=== PATIENT | male | born 1990 | race Caucasian/White ===

== ENCOUNTER 2024-12-16 04:15 | Inpatient (IN) | payer MEDICARE, OTHER, SELFPAY ==
[2024-12-16] VITALS (8 sets, daily range): BP systolic 100–128; BP diastolic 63–78; PULSE 92–117; TEMP 36.8–38.1; O2SAT 96–99
--- NOTE | 2024-12-16 04:49 | ED_ITS ---
Documented by User: Jak Aguirre MD 12/20/24 23:16 HPI HPI - General Adult General Chief complaint: Extremity Problem, Nontraumatic Stated complaint: CATHETER ISSUE Time Seen by Provider: 12/16/24 04:37 Source: patient Mode of arrival: walk-in Limitations: no limitations History of Present Illness HPI narrative: patient ill for the past week. Has a tunnel right inguinal central line that was placed 4 years ago [facility] after he was in an accident and required hemodialysis . States it has not been used for years. Now presents stating he had fever at home. he feels week and now has pain at the central line entry site. No dyspnea. Doesn't feel well he also had compartment syndrome RUE and has resultant deformity post treatment Related Data Home Medications ?Medication ?Instructions ?Recorded ?Confirmed buprenorphine 8 mg-naloxone 2 mg 1.5 film sublingual B ID 12/17/24 12/17/24 sublingual film gabapentin 600 mg tablet 600 mg PO TID PRN anxiety 12/17/24 Allergies Allergy/AdvReac Type Severity Reaction Status Date / Time No Known Drug Allergies Allergy Verified 12/16/24 04:26 Opioid HPI Opioid Management Most Recent Opioid Data: 2 Last Pain Scale 3 Today, 09:53 Last Pain Assessment 12/17/24, 02:00 Last MAR Pain Assessment 12/16/24, 22:00 Last ORT Total Score 2 12/17/24, 01:13 Last ORT Risk Category Low Risk 12/17/24, 01:13 Ur Phencyclidine Scrn, (NEGATIVE) Negative , 10:30 Review of Systems 2 ROS0 Status of ROS 10 or more systems reviewed and unremark able except as noted in history and below PFSH PFS Medical History (Updated 12/17/24 @ 10:12 by David López MD) Compartment syndrome of right upper extremity ?T79.A11A - Traumatic compartment syndrome of right upper extremity, initial encounter (ICD-10) Surgical History (Updated 12/17/24 @ 01:40 by Aruna Langford RN) Hx of fasciotomy ?Z98.890 - Other specified postprocedural states (ICD-10) Family History (Updated 12/17/24 @ 01:40 by Aruna Langford RN) Mother Family history of bleeding or clotting disorder Family history of hypertension Social History (Updated 12/17/24 @ 01:40 by Aruna Langford RN) Within the past year, how often did you have a drink containing alcohol: monthly or less Within the past year, how many standard drinks containing alcohol did you have on a typical day: 1 or 2 Within the past year, how often did you have six or more drinks on one occasion: less than monthly Total score: 1 Score interpretation: A score less than 4 is consistent with normal alcohol consumption. Smoking status: Current every day smoker Non-prescribed substance use: cannabis (any form) Highest level of school completed/degree received: GED or equivalent Are you now , , , , never or living with a partner: never In a typical week, how many times do you talk on the telephone with family, friends, or neighbors: 3 or more times per week Little interest or pleasure in doing things: more than half the days Feeling down, depressed, or hopeless: not at all Exam Constitutional Vital Signs, click to edit/add: Last Vital Signs Temp 98.1 F 12/20/24 19:55 Pulse 99 H 12/20/24 22:03 Resp 16 12/20/24 19:55 BP 103/75 12/20/24 19:55 Pulse Ox 97 12/20/24 19:55 O2 Del Method Room Air 12/20/24 19:55 Common normals: no apparent distress, average body habitus, oriented x3, no limitations, healthy appearing, alert and well nourished [facility] Common normals: normocephalic and head/scalp atraumatic Eye Common normals: EOMs intact bilaterally Respiratory Common normals: normal respiratory effort, no retractions, no use of accessory muscles and clear to auscultation bilaterally Cardio Common normals: regular rate, regular rhythm, S1 normal heart sound and S2 normal heart sound GI Common normals: Normal to inspection, nondistended, normoactive bowel sounds present, soft to palpation and non-tender Extremity Extremity image (front): 2 1. right thigh tunnel central line site raised with surrounding erythema Neuro Common normals: oriented x3, CN's II-XII intact bilaterally, moves all extremities and no focal motor deficits Psych Appearance: grossly normal Course Course Hospital Course: Mr. Linares is a 34-year-old gentleman who came in with pain, swelling and tenderness in the right groin and was found to have the following: Sepsis with early septic shock, bacteremia with Staphylococcus at the hemodialysis catheter site Acute kidney failure which is likely secondary to sepsis, resolved Central line (hemodialysis catheter ) blood infection Staphylococcus bacteremia. MRSA resistant pattern is negative. I could not exclude the possibility of endocarditis Patient was accepted to go to [facility] on 12/16 morning. No bed became available therefore I had received a call from ER physician on 12/16 around 10 PM asking me to admit him to the hospital until a bed opens up at [facility] I accepted. Patient was already on vancomycin and clindamycin that were started in the emergency room department. I discontinued clindamycin and added Primaxin. Subsequently I discontinued vancomycin due to staph being methicillin sensitive. White count is coming down. CRP is trending down as well. Patient is afebrile. We called [facility] again this morning. We gave him update on his condition, status and treatment plan We requested speedy acceptance otherwise will transfer patient somewhere else. Thus far there is no indication for an urgent transfer. I tried gently to pull the hemodialysis catheter out however I could not get it out. Either the hemodialysis catheter is tunneled or the catheter is stuck in the venous system. I could not forcefully take it out without vascular backup. Patient wants to go back to [facility]. At this time patient is not along or permitting to initiate transfer somewhere else. Patient is considering signing AMA so he can drive himself to [facility] emergency room. I cautioned him against this option. Recommend patient to have echocardiogram or KAYLYN at [facility] to rule out endocarditis. Recommend repeat blood culture also at [facility] and ID consultation Chronic pain on Suboxone and Neurontin I resumed Those. Hyponatremia and JONATHAN secondary to sepsis, resolved. Anemia, no evidence of acute blood loss. Patient will likely require to have anemia workup to be done in the outpatient setting to be handled by PCP in collaboration with other needed outpatient providers. This may include but not limited to EGD, colonoscopy, referral to see hematology and other needed age-appropriate cancer screening. Marijuana use Patient has a medical marijuana prescription. Noncompliance I do not know the exact circumstances regarding's hemodialysis catheter Patient has not required hemodialysis for 3 years according to him but patient failed to follow-up with [facility] specialist to take it out. Patient will be transferred to [facility] when a bed becomes available. I am hoping today. Patient is on the top of the list. Vital Signs Vital signs: Vital Signs Temperature 98.3 F 12/16/24 04:16 Pulse Rate 117 H 12/16/24 04:16 Respiratory Rate 18 12/16/24 04:16 Blood Pressure 126/78 12/16/24 04:16 Pulse Oximetry 96 12/16/24 04:16 Oxygen Delivery Method Room Air 12/16/24 04:16 Temperature 98.1 F 12/20/24 19:55 Pulse Rate 99 H 12/20/24 22:03 Respiratory Rate 16 12/20/24 19:55 Blood Pressure 103/75 12/20/24 19:55 Pulse Oximetry 97 12/20/24 19:55 Oxygen Delivery Method Room Air 12/20/24 19:55 Medical Decision Making MDM Narrative Medical decision making narrative: patient has tunnel right inguinal central line that was placed after [facility] 2020 at [facility]. It was used for dialysis which he no longer requires. Now presents with pain at the site , erythema and induration. States he did have fever at home. blood cx ordered. Vanco and Clindamycin ordered. CT ordered of the thigh. WBC mildly elevated CT pending at change of shift. Care transferred to Dr Ruelas Lab Data Labs: Lab Results 12/16/24 12/16/24 12/16/24 Range/Units 04:39 04:40 07:31 WBC 12.6 H (4.0-11.0) 10^3/uL RBC 4.17 L (4.70-6.10) 10^6/uL Hgb 13.5 L (14.0-18.0) g/dL Hct 36.9 L (42.0-54.0) % MCV 88.5 (80.0-94.0) fL MCH 32.4 (25.9-34.0) pg MCHC 36.6 H (29.9-35.2) g/dL RDW 13.1 (11.0-15.0) % Plt Count 228 (150-450) 10^3/uL MPV 10.2 (9.5-13.5) fL Seg Neuts % (Manual) 66.0 (43.0-75.0) Lymphocytes % (Manual) 4.0 L (20.5-60.0) % Atypical Lymphs % (Man) 7.0 % Monocytes % (Manual) 22.0 H (1.7-12.0) % Eosinophils % (Manual) 0.0 L (0.9-7.0) % Basophils % (Manual) 1.0 (0.2-2.0) % Neutrophils # (Manual) 8.31 H (1.4-6.5) 10^3/uL Lymphocytes # (Manual) 0.50 L (1.20-3.80) 10^3/uL Abs Atypical Lymphs Man 0.88 Monocytes # (Manual) 2.77 H (0.30-0.80) 10^3/uL Eosinophils # (Manual) 0.00 (0.00-0.70) 10^3/uL Basophils # (Manual) 0.12 H (0.00-0.10) 10^3/uL Sodium 129 L (136-145) mmol/L Potassium 3.4 L (3.5-5.1) mmol/L Chloride 93 L (98-107) mmol/L Carbon Dioxide 23.0 (21.0-32.0) mmol/L Anion Gap 16.4 BUN 21.0 H (7.0-18.0) mg/dL Creatinine 1.54 H (0.70-1.30) mg/dL Est GFR ( Amer) >60 (>=60 mL/min/1.73m^2) Est GFR (Non-Af Amer) 52 L (>=60 mL/min/1.73m^2) BUN/Creatinine Ratio 13.6 Glucose 125 H (74-106) mg/dL Lactate 2.2 H* 0.5 (0.4-2.0) mmol/L Calcium 9.1 (8.5-10.1) mg/dL Total Bilirubin 1.2 H (0.2-1.0) mg/dL AST 23 (15-37) U/L ALT 24 (16-63) U/L Alkaline Phosphatase 77 (46-116) U/L Total Protein 8.2 (6.4-8.2) g/dL Albumin 3.5 (3.4-5.0) g/dL Globulin 4.7 g/dL Albumin/Globulin Ratio 0.7 Specimen Source Blood A.calcoaceticus-baumannii cmplx PCR Not detected (NOT DETECTE) Bacteroides fragilis Not detected (NOT DETECTE) Day albicans (PCR) Not detected (NOT DETECTE) Day auris (PCR) Not detected (NOT DETECTE) C. glabrata (PCR) Not detected (NOT DETECTE) C. krusei (PCR) Not detected (NOT DETECTE) C. parapsilosis (PCR) Not detected (NOT DETECTE) C. tropicalis (PCR) Not detected (NOT DETECTE) C. neoform/gattii (PCR) Not detected (NOT DETECTE) Enterobacterales (PCR) Not detected (NOT DETECTE) E. cloacae complex PCR Not detected (NOT DETECTE) Enterococc faecalis PCR Not detected (NOT DETECTE) Enterococc faecium PCR Not detected (NOT DETECTE) E. coli (PCR) Not detected (NOT DETECTE) H. influenzae (PCR) Not detected (NOT DETECTE) Klebsiella aerogenes (PCR) Not detected (NOT DETECTE) Klebsiella oxytoca PCR Not detected (NOT DETECTE) K. pneumoniae group (PCR) Not detected (NOT DETECTE) List. monocytogenes PCR Not detected (NOT DETECTE) N. meningitidis (PCR) Not detected (NOT DETECTE) Proteus spp. (copies/mL) Not detected (NOT DETECTE) Salmonella spp. (PCR) Not detected (NOT DETECTE) Serratia marcescens PCR Not detected (NOT DETECTE) Staphylococcus sp PCR Detected A* (NOT DETECTE) Staph aureus (PCR) Detected A* (NOT DETECTE) mecA/C & MREJ Resist Gene Not detected (NOT DETECTE) mecA/C-Methicil Resis Gene Not applicable (NOT DETECTE) mcr-1 Colistin Res Gene PCR Not applicable (NOT DETECTE) Staph epidermidis (PCR) Not detected (NOT DETECTE) Staph lugdunensis (TEM-PCR) Not detected (NOT DETECTE) S. maltophilia (PCR) Not detected (NOT DETECTE) Streptococcus sp PCR Not detected (NOT DETECTE) Strep agalactiae (PCR) Not detected (NOT DETECTE) Strep pneumoniae (PCR) Not detected (NOT DETECTE) S. pyogenes (PCR) Not detected (NOT DETECTE) P. aeruginosa (PCR) Not detected (NOT DETECTE) Gage/B-Vanco Res Genes Not applicable (NOT DETECTE) blaIMP Car res Gene PCR Not applicable (NOT DETECTE) KPC (blaKPC) Detect PCR Not applicable (NOT DETECTE) NDM (blaNDM) Detect PCR Not applicable (NOT DETECTE) OXA-48 Carbapenem Resis Gene (PCR) Not applicable (NOT DETECTE) blaVIM Car Res Gene PCR Not applicable (NOT DETECTE) CTX-M ESBL (PCR) Not applicable (NOT DETECTE) Discharge Plan Discharge Chief Complaint: Extremity Problem, Nontraumatic Clinical Impression: Sepsis, Cellulitis, Complications, mechanical, catheter, dialysis Patient Disposition: Admitted As Inpatient Time of Disposition Decision: : Discharge Date/Time: 12/17/24 01:07 Documented by User: Josh Ruelas MD 12/16/24 08:32 HPI HPI - General Adult General Chief complaint: Extremity Problem, Nontraumatic Stated complaint: CATHETER ISSUE Time Seen by Provider: 12/16/24 04:37 Related Data Home Medications ?Medication ?Instructions ?Recorded ?Confirmed buprenorphine 8 mg-naloxone 2 mg 1.5 film sublingual B ID 12/17/24 12/17/24 sublingual film gabapentin 600 mg tablet 600 mg PO TID PRN anxiety 12/17/24 Allergies Allergy/AdvReac Type Severity Reaction Status Date / Time No Known Drug Allergies Allergy Verified 12/16/24 04:26 Opioid HPI Opioid Management Most Recent Opioid Data: 2 Last Pain Scale 3 Today, 09:53 Last Pain Assessment 12/17/24, 02:00 Last MAR Pain Assessment 12/16/24, 22:00 Last ORT Total Score 2 12/17/24, 01:13 Last ORT Risk Category Low Risk 12/17/24, 01:13 Ur Phencyclidine Scrn, (NEGATIVE) Negative , 10:30 PFSH PFSH Medical History (Updated 12/17/24 @ 10:12 by David López MD) Compartment syndrome of right upper extremity ?T79.A11A - Traumatic compartment syndrome of right upper extremity, initial encounter (ICD-10) Surgical History (Updated 12/17/24 @ 01:40 by Aruna Langford RN) Hx of fasciotomy ?Z98.890 - Other specified postprocedural states (ICD-10) Family History (Updated 12/17/24 @ 01:40 by Aruna Langford RN) Mother Family history of bleeding or clotting disorder Family history of hypertension Social History (Updated 12/17/24 @ 01:40 by Aruna Langford RN) Within the past year, how often did you have a drink containing alcohol: monthly or less Within the past year, how many standard drinks containing alcohol did you have on a typical day: 1 or 2 Within the past year, how often did you have six or more drinks on one occasion: less than monthly Total score: 1 Score interpretation: A score less than 4 is consistent with normal alcohol consumption. Smoking status: Current every day smoker Non-prescribed substance use: cannabis (any form) Highest level of school completed/degree received: GED or equivalent Are you now , , , , never or living with a partner: never In a typical week, how many times do you talk on the telephone with family, friends, or neighbors: 3 or more times per week Little interest or pleasure in doing things: more than half the days Feeling down, depressed, or hopeless: not at all Exam Constitutional Vital Signs, click to edit/add: Last Vital Signs Temp 98.1 F 12/20/24 19:55 Pulse 99 H 12/20/24 22:03 Resp 16 12/20/24 19:55 BP 103/75 12/20/24 19:55 Pulse Ox 97 12/20/24 19:55 O2 Del Method Room Air 12/20/24 19:55 Extremity Extremity image (front): 2 1. right thigh tunnel central line site raised with surrounding erythema Course Course Hospital Course: Mr. Linares is a 34-year-old gentleman who came in with pain, swelling and tenderness in the right groin and was found to have the following: Sepsis with early septic shock, bacteremia with Staphylococcus at the hemodialysis catheter site Acute kidney failure which is likely secondary to sepsis, resolved Central line (hemodialysis catheter ) blood infection Staphylococcus bacteremia. MRSA resistant pattern is negative. I could not exclude the possibility of endocarditis Patient was accepted to go to [facility] on 12/16 morning. No bed became available therefore I had received a call from ER physician on 12/16 around 10 PM asking me to admit him to the hospital until a bed opens up at [facility] I accepted. Patient was already on vancomycin and clindamycin that were started in the emergency room department. I discontinued clindamycin and added Primaxin. Subsequently I discontinued vancomycin due to staph being methicillin sensitive. White count is coming down. CRP is trending down as well. Patient is afebrile. We called [facility] again this morning. We gave him update on his condition, status and treatment plan We requested speedy acceptance otherwise will transfer patient somewhere else. Thus far there is no indication for an urgent transfer. I tried gently to pull the hemodialysis catheter out however I could not get it out. Either the hemodialysis catheter is tunneled or the catheter is stuck in the venous system. I could not forcefully take it out without vascular backup. Patient wants to go back to [facility]. At this time patient is not along or permitting to initiate transfer somewhere else. Patient is considering signing AMA so he can drive himself to [facility] emergency room. I cautioned him against this option. Recommend patient to have echocardiogram or KAYLYN at [facility] to rule out endocarditis. Recommend repeat blood culture also at [facility] and ID consultation Chronic pain on Suboxone and Neurontin I resumed Those. Hyponatremia and JONATHAN secondary to sepsis, resolved. Anemia, no evidence of acute blood loss. Patient will likely require to have anemia workup to be done in the outpatient setting to be handled by PCP in collaboration with other needed outpatient providers. This may include but not limited to EGD, colonoscopy, referral to see hematology and other needed age-appropriate cancer screening. Marijuana use Patient has a medical marijuana prescription. Noncompliance I do not know the exact circumstances regarding's hemodialysis catheter Patient has not required hemodialysis for 3 years according to him but patient failed to follow-up with [facility] specialist to take it out. Patient will be transferred to [facility] when a bed becomes available. I am hoping today. Patient is on the top of the list. Vital Signs Vital signs: Vital Signs Temperature 98.3 F 12/16/24 04:16 Pulse Rate 117 H 12/16/24 04:16 Respiratory Rate 18 12/16/24 04:16 Blood Pressure 126/78 12/16/24 04:16 Pulse Oximetry 96 12/16/24 04:16 Oxygen Delivery Method Room Air 12/16/24 04:16 Temperature 98.1 F 12/20/24 19:55 Pulse Rate 99 H 12/20/24 22:03 Respiratory Rate 16 12/20/24 19:55 Blood Pressure 103/75 12/20/24 19:55 Pulse Oximetry 97 12/20/24 19:55 Oxygen Delivery Method Room Air 12/20/24 19:55 Medical Decision Making MDM Narrative Medical decision making narrative: patient has tunnel right inguinal central line that was placed after [facility] 2020 at [facility]. It was used for dialysis which he no longer requires. Now presents with pain at the site , erythema and induration. States he did have fever at home. blood cx ordered. Vanco and Clindamycin ordered. CT ordered of the thigh. WBC mildly elevated CT pending at change of shift. Care transferred to Dr Jessenia BAINS 8:30 am CAT scan has come back and shows cellulitis, no evidence of abscess. He has been given IV clindamycin and vancomycin here. I have spoken to Dr. Rosa at [facility] who accepts the patient in transfer. The patient is agreeable and stable for transfer. The patient is requesting transfer to [facility]. Treatment diagnosis and disposition were discussed with the patient. Differential Diagnosis Differential Diagnosis: Abscess, cellulitis Lab Data Lab results reviewed: Yes I reviewed the patient's lab results Labs: Lab Results 12/16/24 12/16/24 12/16/24 Range/Units 04:39 04:40 07:31 WBC 12.6 H (4.0-11.0) 10^3/uL RBC 4.17 L (4.70-6.10) 10^6/uL Hgb 13.5 L (14.0-18.0) g/dL Hct 36.9 L (42.0-54.0) % MCV 88.5 (80.0-94.0) fL MCH 32.4 (25.9-34.0) pg MCHC 36.6 H (29.9-35.2) g/dL RDW 13.1 (11.0-15.0) % Plt Count 228 (150-450) 10^3/uL MPV 10.2 (9.5-13.5) fL Seg Neuts % (Manual) 66.0 (43.0-75.0) Lymphocytes % (Manual) 4.0 L (20.5-60.0) % Atypical Lymphs % (Man) 7.0 % Monocytes % (Manual) 22.0 H (1.7-12.0) % Eosinophils % (Manual) 0.0 L (0.9-7.0) % Basophils % (Manual) 1.0 (0.2-2.0) % Neutrophils # (Manual) 8.31 H (1.4-6.5) 10^3/uL Lymphocytes # (Manual) 0.50 L (1.20-3.80) 10^3/uL Abs Atypical Lymphs Man 0.88 Monocytes # (Manual) 2.77 H (0.30-0.80) 10^3/uL Eosinophils # (Manual) 0.00 (0.00-0.70) 10^3/uL Basophils # (Manual) 0.12 H (0.00-0.10) 10^3/uL Sodium 129 L (136-145) mmol/L Potassium 3.4 L (3.5-5.1) mmol/L Chloride 93 L (98-107) mmol/L Carbon Dioxide 23.0 (21.0-32.0) mmol/L Anion Gap 16.4 BUN 21.0 H (7.0-18.0) mg/dL Creatinine 1.54 H (0.70-1.30) mg/dL Est GFR ( Amer) >60 (>=60 mL/min/1.73m^2) Est GFR (Non-Af Amer) 52 L (>=60 mL/min/1.73m^2) BUN/Creatinine Ratio 13.6 Glucose 125 H (74-106) mg/dL Lactate 2.2 H* 0.5 (0.4-2.0) mmol/L Calcium 9.1 (8.5-10.1) mg/dL Total Bilirubin 1.2 H (0.2-1.0) mg/dL AST 23 (15-37) U/L ALT 24 (16-63) U/L Alkaline Phosphatase 77 (46-116) U/L Total Protein 8.2 (6.4-8.2) g/dL Albumin 3.5 (3.4-5.0) g/dL Globulin 4.7 g/dL Albumin/Globulin Ratio 0.7 Specimen Source Blood A.calcoaceticus-baumannii cmplx PCR Not detected (NOT DETECTE) Bacteroides fragilis Not detected (NOT DETECTE) Day albicans (PCR) Not detected (NOT DETECTE) Day auris (PCR) Not detected (NOT DETECTE) C. glabrata (PCR) Not detected (NOT DETECTE) C. krusei (PCR) Not detected (NOT DETECTE) C. parapsilosis (PCR) Not detected (NOT DETECTE) C. tropicalis (PCR) Not detected (NOT DETECTE) C. neoform/gattii (PCR) Not detected (NOT DETECTE) Enterobacterales (PCR) Not detected (NOT DETECTE) E. cloacae complex PCR Not detected (NOT DETECTE) Enterococc faecalis PCR Not detected (NOT DETECTE) Enterococc faecium PCR Not detected (NOT DETECTE) E. coli (PCR) Not detected (NOT DETECTE) H. influenzae (PCR) Not detected (NOT DETECTE) Klebsiella aerogenes (PCR) Not detected (NOT DETECTE) Klebsiella oxytoca PCR Not detected (NOT DETECTE) K. pneumoniae group (PCR) Not detected (NOT DETECTE) List. monocytogenes PCR Not detected (NOT DETECTE) N. meningitidis (PCR) Not detected (NOT DETECTE) Proteus spp. (copies/mL) Not detected (NOT DETECTE) Salmonella spp. (PCR) Not detected (NOT DETECTE) Serratia marcescens PCR Not detected (NOT DETECTE) Staphylococcus sp PCR Detected A* (NOT DETECTE) Staph aureus (PCR) Detected A* (NOT DETECTE) mecA/C & MREJ Resist Gene Not detected (NOT DETECTE) mecA/C-Methicil Resis Gene Not applicable (NOT DETECTE) mcr-1 Colistin Res Gene PCR Not applicable (NOT DETECTE) Staph epidermidis (PCR) Not detected (NOT DETECTE) Staph lugdunensis (TEM-PCR) Not detected (NOT DETECTE) S. maltophilia (PCR) Not detected (NOT DETECTE) Streptococcus sp PCR Not detected (NOT DETECTE) Strep agalactiae (PCR) Not detected (NOT DETECTE) Strep pneumoniae (PCR) Not detected (NOT DETECTE) S. pyogenes (PCR) Not detected (NOT DETECTE) P. aeruginosa (PCR) Not detected (NOT DETECTE) Gage/B-Vanco Res Genes Not applicable (NOT DETECTE) blaIMP Car res Gene PCR Not applicable (NOT DETECTE) KPC (blaKPC) Detect PCR Not applicable (NOT DETECTE) NDM (blaNDM) Detect PCR Not applicable (NOT DETECTE) OXA-48 Carbapenem Resis Gene (PCR) Not applicable (NOT DETECTE) blaVIM Car Res Gene PCR Not applicable (NOT DETECTE) CTX-M ESBL (PCR) Not applicable (NOT DETECTE) Imaging Data CT leg: Radiologist's impression: Infiltration of the fat adjacent to the right external iliac vessels in the right femoral venous catheter as above. Findings are suspicious for superimposed infection. Discharge Plan Discharge Chief Complaint: Extremity Problem, Nontraumatic Clinical Impression: Sepsis, Cellulitis, Complications, mechanical, catheter, dialysis Patient Disposition: Admitted As Inpatient Time of Disposition Decision: 08:25 Discharge Date/Time: 12/17/24 01:07 Documented by User: Alejo Rehman 12/16/24 22:37 HPI HPI - General Adult General Chief complaint: Extremity Problem, Nontraumatic Stated complaint: CATHETER ISSUE Time Seen by Provider: 12/16/24 04:37 Related Data Home Medications ?Medication ?Instructions ?Recorded ?Confirmed buprenorphine 8 mg-naloxone 2 mg 1.5 film sublingual B ID 12/17/24 12/17/24 sublingual film gabapentin 600 mg tablet 600 mg PO TID PRN anxiety 12/17/24 Allergies Allergy/AdvReac Type Severity Reaction Status Date / Time No Known Drug Allergies Allergy Verified 12/16/24 04:26 Opioid HPI Opioid Management Most Recent Opioid Data: 2 Last Pain Scale 3 Today, 09:53 Last Pain Assessment 12/17/24, 02:00 Last MAR Pain Assessment 12/16/24, 22:00 Last ORT Total Score 2 12/17/24, 01:13 Last ORT Risk Category Low Risk 12/17/24, 01:13 Ur Phencyclidine Scrn, (NEGATIVE) Negative , 10:30 [facility] Medical History (Updated 12/17/24 @ 10:12 by David López MD) Compartment syndrome of right upper extremity ?T79.A11A - Traumatic compartment syndrome of right upper extremity, initial encounter (ICD-10) Surgical History (Updated 12/17/24 @ 01:40 by Aruna Langford RN) Hx of fasciotomy ?Z98.890 - Other specified postprocedural states (ICD-10) Family History (Updated 12/17/24 @ 01:40 by Aruna Langford RN) Mother Family history of bleeding or clotting disorder Family history of hypertension Social History (Updated 12/17/24 @ 01:40 by Aruna Langford RN) Within the past year, how often did you have a drink containing alcohol: monthly or less Within the past year, how many standard drinks containing alcohol did you have on a typical day: 1 or 2 Within the past year, how often did you have six or more drinks on one occasion: less than monthly Total score: 1 Score interpretation: A score less than 4 is consistent with normal alcohol consumption. Smoking status: Current every day smoker Non-prescribed substance use: cannabis (any form) Highest level of school completed/degree received: GED or equivalent Are you now , , , , never or living with a partner: never In a typical week, how many times do you talk on the telephone with family, friends, or neighbors: 3 or more times per week Little interest or pleasure in doing things: more than half the days Feeling down, depressed, or hopeless: not at all Exam Constitutional Vital Signs, click to edit/add: Last Vital Signs Temp 98.1 F 12/20/24 19:55 Pulse 99 H 12/20/24 22:03 Resp 16 12/20/24 19:55 BP 103/75 12/20/24 19:55 Pulse Ox 97 12/20/24 19:55 O2 Del Method Room Air 12/20/24 19:55 Extremity Extremity image (front): 2 1. right thigh tunnel central line site raised with surrounding erythema Course Course Hospital Course: Mr. Linares is a 34-year-old gentleman who came in with pain, swelling and tenderness in the right groin and was found to have the following: Sepsis with early septic shock, bacteremia with Staphylococcus at the hemodialysis catheter site Acute kidney failure which is likely secondary to sepsis, resolved Central line (hemodialysis catheter ) blood infection Staphylococcus bacteremia. MRSA resistant pattern is negative. I could not exclude the possibility of endocarditis Patient was accepted to go to [facility] on 12/16 morning. No bed became available therefore I had received a call from ER physician on 12/16 around 10 PM asking me to admit him to the hospital until a bed opens up at [facility] I accepted. Patient was already on vancomycin and clindamycin that were started in the emergency room department. I discontinued clindamycin and added Primaxin. Subsequently I discontinued vancomycin due to staph being methicillin sensitive. White count is coming down. CRP is trending down as well. Patient is afebrile. We called [facility] again this morning. We gave him update on his condition, status and treatment plan We requested speedy acceptance otherwise will transfer patient somewhere else. Thus far there is no indication for an urgent transfer. I tried gently to pull the hemodialysis catheter out however I could not get it out. Either the hemodialysis catheter is tunneled or the catheter is stuck in the venous system. I could not forcefully take it out without vascular backup. Patient wants to go back to [facility]. At this time patient is not along or permitting to initiate transfer somewhere else. Patient is considering signing AMA so he can drive himself to [facility] emergency room. I cautioned him against this option. Recommend patient to have echocardiogram or KAYLYN at [facility] to rule out endocarditis. Recommend repeat blood culture also at [facility] and ID consultation Chronic pain on Suboxone and Neurontin I resumed Those. Hyponatremia and JONATHAN secondary to sepsis, resolved. Anemia, no evidence of acute blood loss. Patient will likely require to have anemia workup to be done in the outpatient setting to be handled by PCP in collaboration with other needed outpatient providers. This may include but not limited to EGD, colonoscopy, referral to see hematology and other needed age-appropriate cancer screening. Marijuana use Patient has a medical marijuana prescription. Noncompliance I do not know the exact circumstances regarding's hemodialysis catheter Patient has not required hemodialysis for 3 years according to him but patient failed to follow-up with [facility] specialist to take it out. Patient will be transferred to [facility] when a bed becomes available. I am hoping today. Patient is on the top of the list. Vital Signs Vital signs: Vital Signs Temperature 98.3 F 12/16/24 04:16 Pulse Rate 117 H 12/16/24 04:16 Respiratory Rate 18 12/16/24 04:16 Blood Pressure 126/78 12/16/24 04:16 Pulse Oximetry 96 12/16/24 04:16 Oxygen Delivery Method Room Air 12/16/24 04:16 Temperature 98.1 F 12/20/24 19:55 Pulse Rate 99 H 12/20/24 22:03 Respiratory Rate 16 12/20/24 19:55 Blood Pressure 103/75 12/20/24 19:55 Pulse Oximetry 97 12/20/24 19:55 Oxygen Delivery Method Room Air 12/20/24 19:55 Medical Decision Making MDM Narrative Medical decision making narrative: patient has tunnel right inguinal central line that was placed after [facility] 2020 at [facility]. It was used for dialysis which he no longer requires. Now presents with pain at the site , erythema and induration. States he did have fever at home. blood cx ordered. Vanco and Clindamycin ordered. CT ordered of the thigh. WBC mildly elevated CT pending at change of shift. Care transferred to Dr Jessenia BAINS 8:30 am CAT scan has come back and shows cellulitis, no evidence of abscess. He has been given IV clindamycin and vancomycin here. I have spoken to Dr. Rosa at [facility] who accepts the patient in transfer. The patient is agreeable and stable for transfer. The patient is requesting transfer to [facility]. Treatment diagnosis and disposition were discussed with the patient. 19:00 -this patient was signed out at 7 PM shift change. He is awaiting transfer to [facility] -he has been accepted but that has not been assigned. At 22:20, I paged the on-call hospitalist to discuss admitting this patient to [facility] where he can be properly cared for until a bed at [facility] is assigned and the transfer is completed. After discussing the patient's case, he agrees to admit this patient for further monitoring and care. Antibiotics have already been ordered to be given but Dr. López will input additional orders for admission. Lab Data Labs: Lab Results 09/10/25 09/10/25 09/10/25 Range/Units 04:39 04:40 07:31 WBC 12.6 H (4.0-11.0) 10^3/uL RBC 4.17 L (4.70-6.10) 10^6/uL Hgb 13.5 L (14.0-18.0) g/dL Hct 36.9 L (42.0-54.0) % MCV 88.5 (80.0-94.0) fL MCH 32.4 (25.9-34.0) pg MCHC 36.6 H (29.9-35.2) g/dL RDW 13.1 (11.0-15.0) % Plt Count 228 (150-450) 10^3/uL MPV 10.2 (9.5-13.5) fL Seg Neuts % (Manual) 66.0 (43.0-75.0) Lymphocytes % (Manual) 4.0 L (20.5-60.0) % Atypical Lymphs % (Man) 7.0 % Monocytes % (Manual) 22.0 H (1.7-12.0) % Eosinophils % (Manual) 0.0 L (0.9-7.0) % Basophils % (Manual) 1.0 (0.2-2.0) % Neutrophils # (Manual) 8.31 H (1.4-6.5) 10^3/uL Lymphocytes # (Manual) 0.50 L (1.20-3.80) 10^3/uL Abs Atypical Lymphs Man 0.88 Monocytes # (Manual) 2.77 H (0.30-0.80) 10^3/uL Eosinophils # (Manual) 0.00 (0.00-0.70) 10^3/uL Basophils # (Manual) 0.12 H (0.00-0.10) 10^3/uL Sodium 129 L (136-145) mmol/L Potassium 3.4 L (3.5-5.1) mmol/L Chloride 93 L (98-107) mmol/L Carbon Dioxide 23.0 (21.0-32.0) mmol/L Anion Gap 16.4 BUN 21.0 H (7.0-18.0) mg/dL Creatinine 1.54 H (0.70-1.30) mg/dL Est GFR ( Amer) >60 (>=60 mL/min/1.73m^2) Est GFR (Non-Af Amer) 52 L (>=60 mL/min/1.73m^2) BUN/Creatinine Ratio 13.6 Glucose 125 H (74-106) mg/dL Lactate 2.2 H* 0.5 (0.4-2.0) mmol/L Calcium 9.1 (8.5-10.1) mg/dL Total Bilirubin 1.2 H (0.2-1.0) mg/dL AST 23 (15-37) U/L ALT 24 (16-63) U/L Alkaline Phosphatase 77 (46-116) U/L Total Protein 8.2 (6.4-8.2) g/dL Albumin 3.5 (3.4-5.0) g/dL Globulin 4.7 g/dL Albumin/Globulin Ratio 0.7 Specimen Source Blood A.calcoaceticus-baumannii cmplx PCR Not detected (NOT DETECTE) Bacteroides fragilis Not detected (NOT DETECTE) Day albicans (PCR) Not detected (NOT DETECTE) Day auris (PCR) Not detected (NOT DETECTE) C. glabrata (PCR) Not detected (NOT DETECTE) C. krusei (PCR) Not detected (NOT DETECTE) C. parapsilosis (PCR) Not detected (NOT DETECTE) C. tropicalis (PCR) Not detected (NOT DETECTE) C. neoform/gattii (PCR) Not detected (NOT DETECTE) Enterobacterales (PCR) Not detected (NOT DETECTE) E. cloacae complex PCR Not detected (NOT DETECTE) Enterococc faecalis PCR Not detected (NOT DETECTE) Enterococc faecium PCR Not detected (NOT DETECTE) E. coli (PCR) Not detected (NOT DETECTE) H. influenzae (PCR) Not detected (NOT DETECTE) Klebsiella aerogenes (PCR) Not detected (NOT DETECTE) Klebsiella oxytoca PCR Not detected (NOT DETECTE) K. pneumoniae group (PCR) Not detected (NOT DETECTE) List. monocytogenes PCR Not detected (NOT DETECTE) N. meningitidis (PCR) Not detected (NOT DETECTE) Proteus spp. (copies/mL) Not detected (NOT DETECTE) Salmonella spp. (PCR) Not detected (NOT DETECTE) Serratia marcescens PCR Not detected (NOT DETECTE) Staphylococcus sp PCR Detected A* (NOT DETECTE) Staph aureus (PCR) Detected A* (NOT DETECTE) mecA/C & MREJ Resist Gene Not detected (NOT DETECTE) mecA/C-Methicil Resis Gene Not applicable (NOT DETECTE) mcr-1 Colistin Res Gene PCR Not applicable (NOT DETECTE) Staph epidermidis (PCR) Not detected (NOT DETECTE) Staph lugdunensis (TEM-PCR) Not detected (NOT DETECTE) S. maltophilia (PCR) Not detected (NOT DETECTE) Streptococcus sp PCR Not detected (NOT DETECTE) Strep agalactiae (PCR) Not detected (NOT DETECTE) Strep pneumoniae (PCR) Not detected (NOT DETECTE) S. pyogenes (PCR) Not detected (NOT DETECTE) P. aeruginosa (PCR) Not detected (NOT DETECTE) Gage/B-Vanco Res Genes Not applicable (NOT DETECTE) blaIMP Car res Gene PCR Not applicable (NOT DETECTE) KPC (blaKPC) Detect PCR Not applicable (NOT DETECTE) NDM (blaNDM) Detect PCR Not applicable (NOT DETECTE) OXA-48 Carbapenem Resis Gene (PCR) Not applicable (NOT DETECTE) blaVIM Car Res Gene PCR Not applicable (NOT DETECTE) CTX-M ESBL (PCR) Not applicable (NOT DETECTE) Discharge Plan Discharge Chief Complaint: Extremity Problem, Nontraumatic Clinical Impression: Sepsis, Cellulitis, Complications, mechanical, catheter, dialysis Patient Disposition: Admitted As Inpatient Time of Disposition Decision: 08:25 Discharge Date/Time: 12/17/24 01:07
[2024-12-16 05:17] LABS: Hematocrit 36.9 % (42.0-54.0); Hemoglobin 13.5 g/dL (14.0-18.0); Mean Corpuscular HGB Conc 36.6 g/dL (29.9-35.2); Mean Corpuscular Hemoglobin 32.4 pg (25.9-34.0); Mean Corpuscular Volume 88.5 fL (80.0-94.0); Platelet Count 228 10^3/uL (150-450); Red Blood Count 4.17 10^6/uL (4.70-6.10); White Blood Count 12.6 10^3/uL (4.0-11.0)
[2024-12-16 05:30] LABS: Alanine Aminotransferase 24 U/L (16-63); Albumin Globulin Ratio 0.7; Albumin Level 3.5 g/dL (3.4-5.0); Alkaline Phosphatase 77 U/L (46-116); Anion Gap 16.4; Aspartate Amino Transferase 23 U/L (15-37); Blood Urea Nitrogen 21.0 mg/dL (7.0-18.0); Calcium 9.1 mg/dL (8.5-10.1); Carbon Dioxide 23.0 mmol/L (21.0-32.0); Chloride 93 mmol/L (98-107); Estimated GFR (African America >60 (>=60 mL/min/1.73m^2); Estimated GFR (Non-African Ame 52 (>=60 mL/min/1.73m^2); Globulin 4.7 g/dL; Glucose 125 mg/dL (74-106); Potassium 3.4 mmol/L (3.5-5.1); Sodium 129 mmol/L (136-145); Total Protein 8.2 g/dL (6.4-8.2)
[2024-12-16 05:47] LABS: Lactate/Lactic Acid 2.2 mmol/L (0.4-2.0)
--- NOTE | 2024-12-16 05:48 | PC.NURSE ---
May from lab called with critical lactic of 2.2, Kirsten BLEL and Dr Aguirre informed of this
[2024-12-16] MEDS: 0.9 % SODIUM CHLORIDE 1,000 ML 999 ML IV (05:49)
[2024-12-16] MEDS: CLINDAMYCIN PHOSPHATE/D5W 600 MG/50 ML PREMIX 100 MG IV ×3 (05:49→17:40)
[2024-12-16 05:51] LABS: Atypical Lymphocytes % Manual 7.0 %; Atypical Lymphocytes Abs Man 0.88; Basophils Abs Manual 0.12 10^3/uL (0.00-0.10); Basophils Percent Manual 1.0 % (0.2-2.0); Eosinophils Absolute Manual 0.00 10^3/uL (0.00-0.70); Eosinophils Percent Manual 0.0 % (0.9-7.0); Lymphocytes Absolute Manual 0.50 10^3/uL (1.20-3.80); Lymphocytes Percent Manual 4.0 % (20.5-60.0); Monocytes Absolute Manual 2.77 10^3/uL (0.30-0.80); Monocytes Percent Manual 22.0 % (1.7-12.0); Segmented Neut Absolute Manual 8.31 10^3/uL (1.4-6.5); Segmented Neutrophils % Manual 66.0 (43.0-75.0)
[2024-12-16] MEDS: VANCOMYCIN HCL 1,000 MG in 0.9 % SODIUM CHLORIDE 250 ML 250 MG IV (06:29)
[2024-12-16 07:51] LABS: Lactate/Lactic Acid 0.5 mmol/L (0.4-2.0)
[2024-12-16] MEDS: PREGABALIN 75 MG CAPSULE 150 MG PO (08:26)
[2024-12-16] MEDS: VANCOMYCIN HCL 1,250 MG in 0.9 % SODIUM CHLORIDE 250 ML 166.667 MG IV (18:37)
[2024-12-16] MEDS: LORAZEPAM 1 MG TABLET PO (18:37)
[2024-12-16] MEDS: ACETAMINOPHEN 500 MG TABLET 1000 MG PO (22:00)
[2024-12-16] MEDS: IMIPENEM/CILASTATIN SODIUM 1,000 MG in 0.9 % SODIUM CHLORIDE 250 ML 250 MG IV (23:36)
[2024-12-17] VITALS (20 sets, daily range): BP systolic 88–116; BP diastolic 62–77; PULSE 70–117; TEMP 36.7–37; O2SAT 95–98; BMI 27.2
[2024-12-17 01:12] LABS: A. calcoaceticus-baumannii Cpx NOT DETECTED (NOT DETECTE); Bacteroides fragilis NOT DETECTED (NOT DETECTE); Candida auris NOT DETECTED (NOT DETECTE); Candida glabrata NOT DETECTED (NOT DETECTE); Enterobacterales NOT DETECTED (NOT DETECTE); Enterococcus faecalis NOT DETECTED (NOT DETECTE); Enterococcus faecium NOT DETECTED (NOT DETECTE); Klebsiella aerogenes NOT DETECTED (NOT DETECTE); Klebsiella pneumoniae group NOT DETECTED (NOT DETECTE); Proteus spp. NOT DETECTED (NOT DETECTE); Salmonella spp. NOT DETECTED (NOT DETECTE); Serratia marcescens NOT DETECTED (NOT DETECTE); Staphylococcus epidermidis NOT DETECTED (NOT DETECTE); Staphylococcus lugdunensis NOT DETECTED (NOT DETECTE); Stenotrophomonas maltophilia NOT DETECTED (NOT DETECTE); Streptococcus pyogenes NOT DETECTED (NOT DETECTE); Streptococcus spp. NOT DETECTED (NOT DETECTE)
[2024-12-17 02:21] LABS: mecA/C and MREJ (MRSA) NOT DETECTED (NOT DETECTE)
[2024-12-17 02:22] LABS: Source BLOOD
[2024-12-17 02:23] LABS: Staphylococcus spp. DETECTED (NOT DETECTE)
[2024-12-17 05:51] LABS: Hematocrit 32.9 % (42.0-54.0); Hemoglobin 11.6 g/dL (14.0-18.0); Mean Corpuscular HGB Conc 35.3 g/dL (29.9-35.2); Mean Corpuscular Hemoglobin 32.0 pg (25.9-34.0); Mean Corpuscular Volume 90.9 fL (80.0-94.0); Platelet Count 211 10^3/uL (150-450); Red Blood Count 3.62 10^6/uL (4.70-6.10); White Blood Count 9.3 10^3/uL (4.0-11.0)
[2024-12-17 06:10] LABS: Alanine Aminotransferase 14 U/L (16-63); Albumin Globulin Ratio 0.5; Albumin Level 2.4 g/dL (3.4-5.0); Alkaline Phosphatase 69 U/L (46-116); Anion Gap 13.6; Aspartate Amino Transferase 14 U/L (15-37); Blood Urea Nitrogen 20.0 mg/dL (7.0-18.0); Calcium 8.5 mg/dL (8.5-10.1); Carbon Dioxide 25.1 mmol/L (21.0-32.0); Chloride 100 mmol/L (98-107); Estimated GFR (African America >60 (>=60 mL/min/1.73m^2); Estimated GFR (Non-African Ame >60 (>=60 mL/min/1.73m^2); Globulin 4.4 g/dL; Glucose 125 mg/dL (74-106); Potassium 3.7 mmol/L (3.5-5.1); Sodium 135 mmol/L (136-145); Total Protein 6.8 g/dL (6.4-8.2)
[2024-12-17] MEDS: VANCOMYCIN HCL 1,250 MG in 0.9 % SODIUM CHLORIDE 250 ML 166.667 MG IV (06:29)
[2024-12-17] MEDS: MIDODRINE HCL 5 MG TABLET PO ×3 (08:42→16:26)
[2024-12-17] MEDS: NON-FORMULARY 1 EACH (Buprenorphine-Naloxone 8-2 mg film) 1.5 EACH SL ×2 (08:42→21:42)
[2024-12-17] MEDS: GABAPENTIN 600 MG 600 EACH PO (08:42)
[2024-12-17] MEDS: IMIPENEM/CILASTATIN SODIUM 1,000 MG in 0.9 % SODIUM CHLORIDE 250 ML 250 MG IV ×2 (08:47→16:11)
--- NOTE | 2024-12-17 09:54 | CM.NOTE ---
Rounds made with Dr. López, pt awaiting bed at [facility] for transfer. Discussed plan of care with pt, lab findings, and transfer process.
--- NOTE | 2024-12-17 10:00 | CT_ITS ---
The [address] [address] Patient Name: JAZMIN CORONADO MRN: [id number] date: 1990 Sex: M Assigned Patient Location: [place] Current Patient Location: Accession/Order Number: [id number] Exam Date: 12/17/2024 11:00 Report Date: 12/17/2024 11:47 At the request of: VERA PÉREZ MD Procedure: CT hip RT wo con CT RIGHT HIP WITHOUT CONTRAST WITH 3-D RECONSTRUCTIONS COMPARISON 12/16/2024 femur CLINICAL DATA: Cellulitis and right groin abscess. Fever. Spiral images were obtained through the right hip without contrast. Sagittal, coronal and 3-D volume rendered reconstructions were reviewed. This CT exam was performed using one or more following dose reduction techniques: Automated exposure control, adjustment of the mA and/or kV according to patient size, or use of iterative reconstruction technique. The bony structures within the [id number] are intact. No fracture or bony destruction is identified. There is no dislocation at the right hip. A right groin dialysis catheter is again seen. The distal aspect of the catheter is not included at the upper pelvis. There is soft tissue density surrounding the catheter within the pelvis and out into the groin. This may be minimally more prominent as it enters the pelvic cavity. There is is somewhat phlegmonous appearance however obvious drainable abscess within limits of unenhanced technique. There is subcutaneous stranding anterior and lateral to the groin and into the proximal anterior thigh. There are several enlarged lymph nodes with some appearing slightly larger. The wall of the imaged urinary bladder appears slightly thickened. There is no pelvic ascites in the field of view. There is some stranding that extends down along the right pelvic sidewall into the presacral region suggesting edema. CT/CT hip RT wo con IMPRESSION: CONTINUED INFLAMMATORY CHANGES AND ADENOPATHY ALONG THE COURSE OF THE IMAGED RIGHT GROIN DIALYSIS CATHETER, DESCRIBED. THE INFLAMMATION MAY BE MINIMALLY WORSE. ASSESSMENT FOR ABSCESS IS LIMITED BY LACK OF CONTRAST. Impression dictated by: Cher Calle M.D. 12/17/2024 11:47 AM Dictation Location: [place] [address] Electronically authenticated by: [id number] Y Date: 12/17/2024 11:47
--- NOTE | 2024-12-17 10:09 | PM.HP ---
HPI H&P: HPI History of Present Illness Chief complaint: CATHETER ISSUE, INFECTED DIALYSIS CATHETER Narrative: Mr. Linares is a 34-year-old gentleman who came to the emergency room complaining of pain, swelling and tenderness in the right groin at the site of hemodialysis catheter. The patient started having the symptoms about 10 days ago. 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 Patient required dialysis at that time but none since then. No dialysis for 3 years and patient kept hemodialysis catheter in place waiting for disaster like this to happen. Patient reported having fever, chills. No abdominal pain. No chest pain. Opioid HPI Opioid Management Most Recent Pain and Opioid Data: Last Pain Scale 7 12/16/24, 04:51 Last Pain Assessment Today, 02:00 Last MAR Pain Assessment 12/16/24, 22:00 Last ORT Total Score 2 Today, 01:13 Last ORT Risk Category Low Risk Today, 01:13 PFSH PFSH Medical History (Updated 12/17/24 @ 10:12 by David López MD) Compartment syndrome of right upper extremity ?T79.A11A - Traumatic compartment syndrome of right upper extremity, initial encounter (ICD-10) Surgical History (Updated 12/17/24 @ 01:40 by Aruna Langford RN) Hx of fasciotomy ?Z98.890 - Other specified postprocedural states (ICD-10) Family History (Updated 12/17/24 @ 01:40 by Aruna Langford RN) Mother Family history of bleeding or clotting disorder Family history of hypertension Social History (Updated 12/17/24 @ 01:40 by Aruna Langford RN) Within the past year, how often did you have a drink containing alcohol: monthly or less Within the past year, how many standard drinks containing alcohol did you have on a typical day: 1 or 2 Within the past year, how often did you have six or more drinks on one occasion: less than monthly Total score: 1 Score interpretation: A score less than 4 is consistent with normal alcohol consumption. Smoking status: Current every day smoker Non-prescribed substance use: cannabis (any form) Highest level of school completed/degree received: GED or equivalent Are you now , , , , never or living with a partner: never In a typical week, how many times do you talk on the telephone with family, friends, or neighbors: 3 or more times per week Little interest or pleasure in doing things: more than half the days Feeling down, depressed, or hopeless: not at all Meds Home Medications and Allergies Home Medications ?Medication ?Instructions ?Recorded ?Confirmed ?Type buprenorphine 8 mg-naloxone 2 mg 1.5 film sublingual BID 12/17/24 12/17/24 History sublingual film gabapentin 600 mg tablet 600 mg PO TID PRN anxiety 12/17/24 12/17/24 History Allergies Allergy/AdvReac Type Severity Reaction Status Date / Time No Known Drug Allergies Allergy Verified 12/16/24 04:26 Exam Narrative Exam Narrative: [pt is awake and alert. oriented to place, time and person HEENT: [place] conjunctiva and NL buccal mucosa Neck: Supple, no tenderness Endocrine: No Thyromegaly. Vascular: No JVD or carotid bruit. Lymphatic: No cervical lymphadenopathy. Chest: CTA no DTP. Heart RRR, no extra sound or murmur. Abd: Soft, no tenderness, no rebound and no rigidity. Increase abd girth therefore clinically I could not exclude the possibility of intra abd mass or organomegaly. LE: No cyanosis or clubbing, no varices or edema. Swelling, tenderness, erythema involving the right groin around the hemodialysis catheter insertion site. The area of erythema, induration and tenderness is measuring about 3 to 5 inches in diameter. Central firm swelling that could not exclude the possibility of abscess formation. Neuro: A A O. Nl speech, comprehension and attention. Nl and symetrical motor and tone examination through out. []] Constitutional Vital Signs, click to edit/add: Last Vital Signs Temp 98.4 F 12/17/24 08:00 Pulse 98 H 12/17/24 09:53 Resp 18 12/17/24 08:00 BP 115/71 12/17/24 08:42 Pulse Ox 96 12/17/24 08:00 O2 Del Method Room Air 12/17/24 08:00 Results Labs Labs: Short CBC 12/17/24 Range/Units 05:07 WBC 9.3 (4.0-11.0) 10^3/uL Hgb 11.6 L (14.0-18.0) g/dL Hct 32.9 L (42.0-54.0) % Plt Count 211 (150-450) 10^3/uL BMP 12/17/24 05:07 Sodium 135 L Potassium 3.7 Chloride 100 Carbon Dioxide 25.1 BUN 20.0 H Creatinine 1.11 Glucose 125 H Calcium 8.5 Liver Function 12/17/24 Range/Units 05:07 Total Bilirubin 0.6 (0.2-1.0) mg/dL AST 14 L (15-37) U/L ALT 14 L (16-63) U/L Alkaline Phosphatase 69 (46-116) U/L Albumin 2.4 L (3.4-5.0) g/dL Assessment and Plan Assessment and Plan (1) Sepsis: (2) Cellulitis: (3) Complications, mechanical, catheter, dialysis: (4) Bacteremia: (5) Severe sepsis: (6) Chronic pain: (7) Septic shock: Plan Sepsis with early septic shock, bacteremia with Staphylococcus at the hemodialysis catheter site Acute kidney failure which is likely secondary to sepsis, resolved Staphylococcus bacteremia. I could not exclude the possibility of endocarditis Patient was accepted to go to [facility] yesterday morning. No bed became available therefore I had received a call from ER physician last evening around 10 PM asking me to admit him to the hospital until a bed opens up at [facility] excepted. Patient was already on vancomycin and clindamycin that were started in the emergency room department. I discontinued clindamycin and added Primaxin. Continue Primaxin and vancomycin Requested CT groin to see if he has any abscess there that would need I&D Patient will need ID consultation when he gets to [facility] Patient would need echocardiogram or KAYLYN to rule out endocarditis when he gets to [facility] I ordered IV fluid infusion for early hemorrhagic shock I ordered CRP which came back elevated. His JONATHAN had resolved Lovenox for DVT prophylaxis. Chronic pain on Suboxone and Neurontin I resumed Those. Anemia, no evidence of acute blood loss. Patient will likely require to have anemia workup to be done in the outpatient setting to be handled by PCP in collaboration with other needed outpatient providers. This may include but not limited to EGD, colonoscopy, referral to see hematology and other needed age-appropriate cancer screening. Noncompliance I do not know the exact circumstances regarding's hemodialysis catheter Patient has not required hemodialysis for 3 years according to him but patient failed to follow-up with [facility] specialist to take it out. Patient will be transferred to [facility] when a bed becomes available.
[2024-12-17] MEDS: ENOXAPARIN SODIUM 40 MG/0.4 ML SYRINGE SUBQ (10:24)
[2024-12-17 10:54] LABS: Glucose Urine UA NEGATIVE (NEGATIVE)
[2024-12-17 11:04] LABS: Cannabinoid Screen Urine POSITIVE (NEGATIVE); Methamphetamines Screen Urine NEGATIVE (NEGATIVE); Tricyclic Antidepressant Urine NEGATIVE (NEGATIVE)
[2024-12-17 11:11] LABS: Cast Seen? NONE SEEN #/LPF (NONE SEEN); Crystals Seen? Seen #/HPF (None Seen); Urine Culture Indicated YES-FRMC
--- NOTE | 2024-12-17 12:12 | SWNOTE1 ---
Important Message from Medicare reviewed and discussed with patient. Pt. verbalized understanding and signed the form. Original given to patient and copy placed in patient?s chart. Pt is waiting on transfer to [facility] at this time.
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
[2024-12-17] MEDS: GABAPENTIN 300 MG CAPSULE 600 MG PO (16:17)
[2024-12-17] MEDS: VANCOMYCIN HCL 1,250 MG in 0.9 % SODIUM CHLORIDE 250 ML 250 MG IV (17:21)
[2024-12-18] VITALS (16 sets, daily range): BP systolic 96–124; BP diastolic 58–75; PULSE 88–105; TEMP 36.6–37.3; O2SAT 94–97
[2024-12-18] MEDS: IMIPENEM/CILASTATIN SODIUM 1,000 MG in 0.9 % SODIUM CHLORIDE 250 ML 250 MG IV ×3 (00:02→16:40)
[2024-12-18] MEDS: VANCOMYCIN HCL 1,250 MG in 0.9 % SODIUM CHLORIDE 250 ML 167 MG IV (05:05)
[2024-12-18 06:14] LABS: Anion Gap 14.9; Blood Urea Nitrogen 19.0 mg/dL (7.0-18.0); Calcium 8.6 mg/dL (8.5-10.1); Carbon Dioxide 25.0 mmol/L (21.0-32.0); Chloride 99 mmol/L (98-107); Estimated GFR (African America >60 (>=60 mL/min/1.73m^2); Estimated GFR (Non-African Ame >60 (>=60 mL/min/1.73m^2); Glucose 92 mg/dL (74-106); Potassium 3.9 mmol/L (3.5-5.1); Sodium 135 mmol/L (136-145)
--- NOTE | 2024-12-18 07:13 | PM.DS1 ---
DS: Providers Provider Date of admission: 12/17/24 00:57 Primary care physician: Non-Staff Physician, Consults: 12/17/24 Consult to Dietitian Routine Reason for consultation: decreased appetite DS: Diagnosis Discharge Diagnosis (1) Sepsis: (2) Cellulitis: (3) Complications, mechanical, catheter, dialysis: (4) Bacteremia: (5) Severe sepsis: (6) Chronic pain: (7) Septic shock: Plan As listed above, below and others that are not listed DS: Summary Hospital Course Hospital Course: Mr. Linares is a 34-year-old gentleman who came in with pain, swelling and tenderness in the right groin and was found to have the following: Sepsis with early septic shock, bacteremia with Staphylococcus at the hemodialysis catheter site Acute kidney failure which is likely secondary to sepsis, resolved Staphylococcus bacteremia. MRSA resistant pattern is negative. I could not exclude the possibility of endocarditis Patient was accepted to go to [facility] on 12/16 morning. No bed became available therefore I had received a call from ER physician on 12/16 around 10 PM asking me to admit him to the hospital until a bed opens up at [facility] I accepted. Patient was already on vancomycin and clindamycin that were started in the emergency room department. I discontinued clindamycin and added Primaxin. Continue Primaxin and vancomycin. Staphylococcus resistant pattern is negative. Will discontinue vancomycin. Potentially could change Primaxin to ceftriaxone. Requested CT groin to see if he has any abscess there that would need I&D. Please refer to report for details. Patient will need ID consultation when he gets to [facility] Patient would need echocardiogram or KAYLYN to rule out endocarditis when he gets to [facility] I ordered IV fluid infusion for early hemorrhagic shock I ordered CRP which came back elevated. His JONATHAN had resolved. His white count is down to Lovenox for DVT prophylaxis. Chronic pain on Suboxone and Neurontin I resumed Those. Hyponatremia and JONATHAN secondary to sepsis, resolved. Anemia, no evidence of acute blood loss. Patient will likely require to have anemia workup to be done in the outpatient setting to be handled by PCP in collaboration with other needed outpatient providers. This may include but not limited to EGD, colonoscopy, referral to see hematology and other needed age-appropriate cancer screening. Marijuana use Patient has a medical marijuana prescription. Noncompliance I do not know the exact circumstances regarding's hemodialysis catheter Patient has not required hemodialysis for 3 years according to him but patient failed to follow-up with [facility] specialist to take it out. Patient will be transferred to [facility] when a bed becomes available. Time Spent with Patient Time attestation: Total time spent providing and/or coordinating discharge services: Exam Constitutional Vital Signs, click to edit/add: Last Vital Signs Temp 98.5 F 12/18/24 04:00 Pulse 99 H 12/18/24 05:50 Resp 16 12/18/24 04:00 BP 96/58 12/18/24 04:00 Pulse Ox 96 12/18/24 04:00 O2 Del Method Room Air 12/18/24 04:00 DS: Data Data Completed and Pending Labs on day of discharge: Labs from last 24 hours 12/18/24 12/17/24 05:22 10:30 Sodium 135 L Potassium 3.9 Chloride 99 Carbon Dioxide 25.0 Anion Gap 14.9 BUN 19.0 H Creatinine 1.09 Est GFR ( Amer) >60 Est GFR (Non-Af Amer) >60 BUN/Creatinine Ratio 17.4 Glucose 92 Calcium 8.6 Urine Color Yellow Urine Clarity Clear Urine pH 7.5 Ur Specific [place] 1.020 Urine Protein 30 A Urine Glucose (UA) Negative Urine Ketones Negative Urine Occult Blood Trace-i Urine Nitrite Negative Urine Bilirubin Negative Urine Urobilinogen >=8.0 Ur Leukocyte Esterase Negative Urine RBC 0-2 Urine WBC 2-5 A Ur Squamous Epith Cells Few A Urine Crystals Seen A Amorphous Sediment Few Urine Bacteria Moderate A Urine Casts None seen Urine Mucus Trace A Ur Culture Indicated? Yes-[facility] Urine Opiates Screen Negative Ur Buprenorphine Scrn Positive A Ur Oxycodone Screen Negative Urine Methadone Screen Negative Ur Barbiturates Screen Negative U Tricyclic Antidepress Negative Ur Phencyclidine Scrn Negative Ur Amphetamines Screen Negative U Methamphetamines Scrn Negative U Benzodiazepines Scrn Negative Urine Cocaine Screen Negative U Cannabinoids Screen Positive A Preliminary micro results at discharge 12/17/24 10:30 Urine Culture - Preliminary Urine,Clean Catch Pending - Specimen sent to [facility] Discharge Plan Discharge Disposition: [facility]
--- NOTE | 2024-12-18 08:00 | CM.NOTE ---
Rounds made with Dr. López, awaiting bed at [facility] for transfer. Continue IV antibiotics.
[2024-12-18] MEDS: MIDODRINE HCL 5 MG TABLET PO ×3 (08:55→16:40)
[2024-12-18] MEDS: 0.9 % SODIUM CHLORIDE 250 ML 10 ML IV (08:55)
[2024-12-18] MEDS: ENOXAPARIN SODIUM 40 MG/0.4 ML SYRINGE SUBQ (08:55)
[2024-12-18] MEDS: NON-FORMULARY 1 EACH (Buprenorphine-Naloxone 8-2 mg film) 1.5 EACH SL ×2 (08:59→20:45)
[2024-12-18] MEDS: GABAPENTIN 300 MG CAPSULE 600 MG PO ×2 (11:49→20:44)
--- NOTE | 2024-12-18 19:02 | NUTR.NU ---
Diet consult completed. Pt states he intentionally lost some weight over the summer d/t working outdoors; UTD exact amount and timing. However, CBW is slightly over normal range. Grey denies food insecurity and states he receives food stamps and has transportation to grocery store. He may be interested in home-delivered meals if he qualifies. PO intakes in-house are consistently good. Will continue to follow PRN.
[2024-12-19] VITALS (18 sets, daily range): BP systolic 93–102; BP diastolic 58–66; PULSE 83–105; TEMP 36.6–37.2; O2SAT 94–98
[2024-12-19] MEDS: IMIPENEM/CILASTATIN SODIUM 1,000 MG in 0.9 % SODIUM CHLORIDE 250 ML 250 MG IV ×2 (00:22→08:13)
[2024-12-19 06:25] LABS: Hematocrit 35.5 % (42.0-54.0); Hemoglobin 12.1 g/dL (14.0-18.0); Mean Corpuscular HGB Conc 34.1 g/dL (29.9-35.2); Mean Corpuscular Hemoglobin 31.2 pg (25.9-34.0); Mean Corpuscular Volume 91.5 fL (80.0-94.0); Platelet Count 361 10^3/uL (150-450); Red Blood Count 3.88 10^6/uL (4.70-6.10); White Blood Count 10.8 10^3/uL (4.0-11.0)
[2024-12-19 06:43] LABS: Alanine Aminotransferase 19 U/L (16-63); Albumin Globulin Ratio 0.5; Albumin Level 2.5 g/dL (3.4-5.0); Alkaline Phosphatase 71 U/L (46-116); Anion Gap 12.9; Aspartate Amino Transferase 23 U/L (15-37); Blood Urea Nitrogen 13.0 mg/dL (7.0-18.0); Calcium 8.9 mg/dL (8.5-10.1); Carbon Dioxide 25.3 mmol/L (21.0-32.0); Chloride 99 mmol/L (98-107); Estimated GFR (African America >60 (>=60 mL/min/1.73m^2); Estimated GFR (Non-African Ame >60 (>=60 mL/min/1.73m^2); Globulin 5.2 g/dL; Glucose 92 mg/dL (74-106); Potassium 4.2 mmol/L (3.5-5.1); Sodium 133 mmol/L (136-145); Total Protein 7.7 g/dL (6.4-8.2)
[2024-12-19] MEDS: MIDODRINE HCL 5 MG TABLET PO ×3 (08:13→16:07)
[2024-12-19] MEDS: ENOXAPARIN SODIUM 40 MG/0.4 ML SYRINGE SUBQ (08:13)
[2024-12-19] MEDS: NON-FORMULARY 1 EACH (Buprenorphine-Naloxone 8-2 mg film) 1.5 EACH SL ×2 (08:13→20:36)
--- NOTE | 2024-12-19 09:11 | P.PN_ITS ---
Progress Note: Subjective Subjective Interval history: Patient is feeling better. Less pain and discomfort in the groin. Patient is constipated. No chest pain. Exam Narrative Exam Narrative: [pt is awake and alert. oriented to place, time and person HEENT: [place] conjunctiva and NL buccal mucosa Neck: Supple, no tenderness Endocrine: No Thyromegaly. Vascular: No JVD or carotid bruit. Lymphatic: No cervical lymphadenopathy. Chest: CTA no DTP. Heart RRR, no extra sound or murmur. Abd: Soft, no tenderness, no rebound and no rigidity. Increase abd girth therefore clinically I could not exclude the possibility of intra abd mass or organomegaly. LE: No cyanosis or clubbing, no varices or edema. Swelling, tenderness, erythema involving the right groin around the hemodialysis catheter insertion site. The area of erythema, induration and tenderness is measuring about 2-4 inches in diameter. Central firm swelling that could not exclude the possibility of abscess formation. Neuro: A A O. Nl speech, comprehension and attention. Nl and symetrical motor and tone examination through out. []] Constitutional Vital Signs, click to edit/add: Last Vital Signs Temp 98 F 12/19/24 06:00 Pulse 95 H 12/19/24 07:56 Resp 18 12/19/24 06:00 BP 97/65 12/19/24 06:00 Pulse Ox 94 L 12/19/24 06:00 O2 Del Method Room Air 12/19/24 06:00 Progress Note: Objective Labs Labs: Short CBC 12/19/24 Range/Units 06:15 WBC 10.8 (4.0-11.0) 10^3/uL Hgb 12.1 L (14.0-18.0) g/dL Hct 35.5 L (42.0-54.0) % Plt Count 361 (150-450) 10^3/uL BMP 12/19/24 06:18 Sodium 133 L Potassium 4.2 Chloride 99 Carbon Dioxide 25.3 BUN 13.0 Creatinine 0.98 Glucose 92 Calcium 8.9 Liver Function 12/19/24 Range/Units 06:18 Total Bilirubin 0.8 (0.2-1.0) mg/dL AST 23 (15-37) U/L ALT 19 (16-63) U/L Alkaline Phosphatase 71 (46-116) U/L Albumin 2.5 L (3.4-5.0) g/dL Progress Note: A&P Assessment and Plan (1) Sepsis: (2) Cellulitis: (3) Complications, mechanical, catheter, dialysis: (4) Bacteremia: (5) Severe sepsis: (6) Chronic pain: (7) Septic shock: Plan Sepsis with early septic shock, bacteremia with Staphylococcus at the hemodia lysis catheter site. Resolving. White count is down. CRP is down. Acute kidney failure which is likely secondary to sepsis, resolved Staphylococcus bacteremia. MRSA resistant pattern is negative. I could not exclude the possibility of endocarditis Continue current antibiotic. Patient is waiting for a bed to open up at [facility] for removal of hemodialysis groin tunneled catheter Recommend patient to have echocardiogram at [facility] to rule out endocarditis I would recommend also ID consultation. Constipation, probable ileus I started patient on Senokot, Colace and milk of magnesia. Chronic pain on Suboxone and Neurontin I resumed Those. Hyponatremia and JONATHAN secondary to sepsis, resolved. Anemia, no evidence of acute blood loss. Patient will likely require to have anemia workup to be done in the outpatient setting to be handled by PCP in collaboration with other needed outpatient providers. This may include but not limited to EGD, colonoscopy, referral to see hematology and other needed age-appropriate cancer screening. Marijuana use Patient has a medical marijuana prescription. DVT prophylax Lovenox Noncompliance I do not know the exact circumstances regarding's hemodialysis catheter Patient has not required hemodialysis for 3 years according to him but patient failed to follow-up with [facility] specialist to take it out.
[2024-12-19] MEDS: SENNOSIDES/DOCUSATE SODIUM 1 TAB TABLET 2 TAB PO (09:46)
[2024-12-19] MEDS: MAGNESIUM HYDROXIDE 2,400 MG/10 ML ORAL.SUSP 2400 MG PO (09:46)
[2024-12-19] MEDS: GABAPENTIN 300 MG CAPSULE 600 MG PO (20:36)
--- NOTE | 2024-12-19 20:49 | PC.NURSE ---
Patients right thigh appears more red and edematous. No complaints of pain. Call light within reach and denies any needs
[2024-12-20] VITALS (24 sets, daily range): BP systolic 92–103; BP diastolic 56–75; PULSE 81–170; TEMP 36.7–37.4; O2SAT 95–97
--- NOTE | 2024-12-20 01:53 | PC.NURSE ---
Patient put call light on c/o 10/15 pain in right groin and concerned about further infection. Upper leg warm to the touch, edematous, and painful to patient. Patient stated he wanted to sign out AMA due to No one taking this seriously Patient did not want pain meds because of hx and just wants this taken care of. [facility], and pathology supervisor aware. Patient agrees to stay until morning after he talks to
[2024-12-20] MEDS: 0.9 % SODIUM CHLORIDE 250 ML 10 ML IV (02:43)
[2024-12-20] MEDS: VANCOMYCIN HCL 1,500 MG in 0.9 % SODIUM CHLORIDE 250 ML 166.667 MG IV (02:45)
[2024-12-20] MEDS: IMIPENEM/CILASTATIN SODIUM 1,000 MG in 0.9 % SODIUM CHLORIDE 250 ML 250 MG IV ×4 (06:02→21:02)
[2024-12-20 06:40] LABS: Hematocrit 34.9 % (42.0-54.0); Hemoglobin 11.9 g/dL (14.0-18.0); Mean Corpuscular HGB Conc 34.1 g/dL (29.9-35.2); Mean Corpuscular Hemoglobin 31.6 pg (25.9-34.0); Mean Corpuscular Volume 92.8 fL (80.0-94.0); Platelet Count 389 10^3/uL (150-450); Red Blood Count 3.76 10^6/uL (4.70-6.10); White Blood Count 9.3 10^3/uL (4.0-11.0)
--- NOTE | 2024-12-20 08:31 | PC.NURSE ---
Genetic Scientist called [facility] at 0830 and gave an update report of positive Blood Cx's for bacteremia (Staph), with increased swelling and pain. Genetic Scientist reported that the patient has stated he will sign out AMA if he does not get a bed soon as he feels frustrated. Transfer reports they will update the Dr. and they report that they are still discharge dependent but still not guarantee for a bed today. They report patient is at the top of the list for placement at their facility. They report they are unsure of when they will find out if there are any discharges. Primary nurse and Dr. López.
[2024-12-20] MEDS: MIDODRINE HCL 5 MG TABLET PO ×3 (09:08→16:12)
[2024-12-20] MEDS: ENOXAPARIN SODIUM 40 MG/0.4 ML SYRINGE SUBQ (09:09)
[2024-12-20] MEDS: NON-FORMULARY 1 EACH (Buprenorphine-Naloxone 8-2 mg film) 1.5 EACH SL ×2 (09:09→21:03)
--- NOTE | 2024-12-20 09:22 | PM.DS1 ---
DS: Providers Provider Date of admission: 12/17/24 00:57 Primary care physician: Non-Staff Physician, Consults: 12/17/24 Consult to Dietitian Routine Reason for consultation: decreased appetite DS: Diagnosis Discharge Diagnosis (1) Sepsis: (2) Cellulitis: (3) Complications, mechanical, catheter, dialysis: (4) Bacteremia: (5) Severe sepsis: (6) Chronic pain: (7) Septic shock: Plan As listed above, below and others that are not listed DS: Summary Hospital Course Hospital Course: Mr. Linares is a 34-year-old gentleman who came in with pain, swelling and tenderness in the right groin and was found to have the following: Sepsis with early septic shock, bacteremia with Staphylococcus at the hemodialysis catheter site Acute kidney failure which is likely secondary to sepsis, resolved Central line (hemodialysis catheter ) blood infection Staphylococcus bacteremia. MRSA resistant pattern is negative. I could not exclude the possibility of endocarditis Patient was accepted to go to [facility] on 12/16 morning. No bed became available therefore I had received a call from ER physician on 12/16 around 10 PM asking me to admit him to the hospital until a bed opens up at [facility] I accepted. Patient was already on vancomycin and clindamycin that were started in the emergency room department. I discontinued clindamycin and added Primaxin. Subsequently I discontinued vancomycin due to staph being methicillin sensitive. White count is coming down. CRP is trending down as well. Patient is afebrile. We called [facility] again this morning. We gave him update on his condition, status and treatment plan We requested speedy acceptance otherwise will transfer patient somewhere else. Thus far there is no indication for an urgent transfer. I tried gently to pull the hemodialysis catheter out however I could not get it out. Either the hemodialysis catheter is tunneled or the catheter is stuck in the venous system. I could not forcefully take it out without vascular backup. Patient wants to go back to [facility]. At this time patient is not along or permitting to initiate transfer somewhere else. Patient is considering signing AMA so he can drive himself to [facility] emergency room. I cautioned him against this option. Recommend patient to have echocardiogram or KAYLYN at [facility] to rule out endocarditis. Recommend repeat blood culture also at [facility] and ID consultation Chronic pain on Suboxone and Neurontin I resumed Those. Hyponatremia and JONATHAN secondary to sepsis, resolved. Anemia, no evidence of acute blood loss. Patient will likely require to have anemia workup to be done in the outpatient setting to be handled by PCP in collaboration with other needed outpatient providers. This may include but not limited to EGD, colonoscopy, referral to see hematology and other needed age-appropriate cancer screening. Marijuana use Patient has a medical marijuana prescription. Noncompliance I do not know the exact circumstances regarding's hemodialysis catheter Patient has not required hemodialysis for 3 years according to him but patient failed to follow-up with [facility] specialist to take it out. Patient will be transferred to [facility] when a bed becomes available. I am hoping today. Patient is on the top of the list. Time Spent with Patient Time attestation: Total time spent providing and/or coordinating discharge services: Exam Constitutional Vital Signs, click to edit/add: Last Vital Signs Temp 98.6 F 12/20/24 07:15 Pulse 90 12/20/24 08:06 Resp 20 12/20/24 07:15 BP 95/62 12/20/24 09:08 Pulse Ox 96 12/20/24 07:15 O2 Del Method Room Air 12/20/24 07:15 DS: Data Data Completed and Pending Labs on day of discharge: Labs from last 24 hours 12/20/24 05:49 WBC 9.3 RBC 3.76 L Hgb 11.9 L Hct 34.9 L MCV 92.8 MCH 31.6 MCHC 34.1 RDW 13.4 Plt Count 389 MPV 10.1 C-Reactive Protein 15.18 H Preliminary micro results at discharge 12/16/24 04:40 Anaerobe Identification - Preliminary Blood - Left Antecubital 12/16/24 05:04 Anaerobe Identification - Preliminary Blood - Right Antecubital 12/17/24 10:30 Urine Culture - Preliminary Urine,Clean Catch Pending - Specimen sent to [facility] Discharge Plan Discharge Disposition: [facility]
[2024-12-20] MEDS: GABAPENTIN 300 MG CAPSULE 600 MG PO ×2 (11:40→21:02)
--- NOTE | 2024-12-20 16:44 | PC.NURSE ---
pts monitor alarming that pts HR in the 170's and V tach. Nurse goes to room with another nurse. pt sleeping and snoring on right side, nurse awakens patient. Pt denies feeling unwell. leads to pt off and monitor came loose from telemetry box, Wires tightened and leads reapplied. Hr then returns to normal sinus in the 80's.
--- NOTE | 2024-12-20 23:26 | PC.NURSE ---
Report called to Min at [facility]. Patient will be going to 9th floor bed 208. Patient stable
== END 2024-12-20 23:28 | disposition short-term general hospital (02) | DRG 314 ==
LOC: ER 22:37 → MS 12-17 01:04
PROVIDERS: Internal Medicine; Admitting Provider Internal Medicine; Emergency Provider Emergency Medicine; Visit Provider Internal Medicine
DX: T80.211A Bloodstream infection due to central venous catheter, initial encounter (principal); A41.01 Sepsis due to Methicillin susceptible Staphylococcus aureus; R65.21 Severe sepsis with septic shock; N17.9 Acute kidney failure, unspecified; E87.1 Hypo-osmolality and hyponatremia; L03.314 Cellulitis of groin; I38 Endocarditis, valve unspecified; G89.29 Other chronic pain; Z79.899 Other long term (current) drug therapy; D64.9 Anemia, unspecified; Z91.199 Patient's noncompliance with other medical treatment and regimen due to unspecified reason; F12.90 Cannabis use, unspecified, uncomplicated; Z91.51 Personal history of suicidal behavior; F17.200 Nicotine dependence, unspecified, uncomplicated; K59.00 Constipation, unspecified
CPT/HCPCS: 36415; 73700; 73701; 76376; 80048; 80053; 80202; 80307; 81001; 83605; 85007; 85027; 86140; 87040; 87077; 87086; 87150; 87186; 96365; 96366; 96367; 99285; 99406; J0696; J0743; J1650; J3373; Q9967